=== PATIENT | female | born 1980 | race Caucasian/White ===

== ENCOUNTER 2020-10-19 13:02 | Emergency (ER) | payer OTHER ==
[2020-10-19] MEDS ORDERED: NAPROXEN500 MG PO (14:23)
[2020-10-19] MEDS ORDERED: BACLOFEN 10MG T10 MG PO (14:23)
== END 2020-10-19 14:46 | disposition home or self-care (01) ==
LOC: FER 13:02
DX: S46.912A Strain of unspecified muscle, fascia and tendon at shoulder and upper arm level, left arm, initial encounter (principal); Z90.49 Acquired absence of other specified parts of digestive tract; Z90.710 Acquired absence of both cervix and uterus; Z88.1 Allergy status to other antibiotic agents; X58.XXXA Exposure to other specified factors, initial encounter
CPT/HCPCS: 73030; 96372; J1100; J1885